=== PATIENT | male | born 1965 | race Caucasian/White ===

== ENCOUNTER 2023-01-17 14:45 | Outpatient (CLI) | payer OTHER | END 2023-01-17 14:46 | disposition home or self-care (01) | LOC: MADRAD 14:45 | PROVIDERS: ATTEND Chiropractor | DX: S56.512A Strain of other extensor muscle, fascia and tendon at forearm level, left arm, initial encounter (principal); S50.852A Superficial foreign body of left forearm, initial encounter ==